=== PATIENT | female | born 1995 | race Caucasian/White ===

== ENCOUNTER → 2022-10-25 | Outpatient (CLI) | payer BC ==
--- NOTE | 2022-10-25 18:28 | CT ---
EXAMINATION TYPE: CT abdomen pelvis w con DATE OF EXAM: 10/25/2022 HISTORY: Malformation of urachus. Pus extruding from belly button for [address] DLP: 2031mGycm Automated Exposure Control for Dose Reduction was Utilized. CONTRAST: CT scan of the abdomen and pelvis is performed with oral and with IV Contrast, patient injected with 100 mL of Isovue 300. COMPARISON: None FINDINGS: LUNG BASES: No significant abnormality is appreciated. LIVER/GB: Somewhat contracted gallbladder. PANCREAS: No significant abnormality is seen. SPLEEN: No significant abnormality is seen. ADRENALS: No significant abnormality is seen. KIDNEYS: Symmetric cortical medullary uptake and excretion without concerning renal mass or hydroneph rosis seen bilaterally. Urinary bladder appears unremarkable. From the anterior superior portion of t he urinary bladder there is persistent linear extension to the umbilicus seen best sagittal image 68 with tiny umbilical hernia. No significant focal fluid collection or fat stranding along this structu re. BOWEL: Oral contrast does not reach colonic level. No suspicious small or large bowel dilatation is s een. Normal appearing appendix noted from base of cecum UTERUS/ADNEXA: Anteverted uterus within the left ovary there is a thin-walled 4.8 x 2.1 cm cyst or cy stic lesion noted axial image 89. LYMPH NODES: No greater than 1cm abdominal or pelvic lymph nodes are appreciated. OSSEOUS STRUCTURES: No significant abnormality is seen. OTHER: No significant additional abnormality is seen. IMPRESSION: A patent urachus is confirmed.
== END | disposition home or self-care (01) ==
LOC: RADCTMAIN 15:53
PROVIDERS: ATTEND Surgery
DX: Q64.4 Malformation of urachus (principal)
CPT/HCPCS: 74177; Q9967 ×2